=== PATIENT | male | born 1965 | race Hispanic/Latino ===

== ENCOUNTER 2022-04-07 06:58 | Outpatient (CLI) | payer BC | END 2022-04-07 06:59 | disposition home or self-care (01) | LOC: BICULT 06:58 | PROVIDERS: ATTEND Family Medicine | DX: R10.11 Right upper quadrant pain (principal) | CPT/HCPCS: 76705 ==

== ENCOUNTER 2024-01-25 15:42 | Outpatient (CLI) | payer BC | END 2024-01-25 15:43 | disposition home or self-care (01) | LOC: BICCT 15:42 | PROVIDERS: ATTEND Family Medicine | DX: G45.9 Transient cerebral ischemic attack, unspecified (principal) | CPT/HCPCS: 70450 ==